=== PATIENT | female | born 1975 | race Caucasian/White ===

== ENCOUNTER 2016-09-01 10:15 | Outpatient (CLI) | payer OTHER ==
--- NOTE | 2016-09-01 10:57 | DIAGNOSTIC IMAGING REPORT ---
PROCEDURE: MG BILATERAL SCREENING W/CAD INDICATION: Screening. Baseline. Family history breast carcinoma (mother). TECHNIQUE: Bilateral CC and MLO digital views. COMPARISON: None. FINDINGS: Computer-aided detection applied. Moderately dense. No change. IMPRESSION: 1. Negative mammogram RESULT CODE: 1- Negative. A. A negative report should not delay biopsy if a dominant or clinically suspicious mass is present. 10-15% of cancers are not identified by x-ray. B. A negative report may reinforce clinical impression. C. Adenosis and dense breasts may obscure an underlying neoplasm. D. False positive reports average 6-10%. E.. A yearly screening mammogram is recommended. A reminder letter will be scheduled.
[2016-09-28] MEDS ORDERED: LIALDA1.2 GM (10:53)
[2016-09-28] MEDS ORDERED: ERRIN0.35 MG PO (10:54)
[2016-09-28] MEDS ORDERED: LIALDA1.2 GM PO (10:54)
[2016-09-28] MEDS ORDERED: SERTRALINE HCL50 MG PO (10:54)
== END 2016-09-01 23:00 ==
LOC: MAM SRH 10:15
DX: Z12.31 Encounter for screening mammogram for malignant neoplasm of breast (principal); Z80.3 Family history of malignant neoplasm of breast